=== PATIENT | female | born 1980 | race Caucasian/White ===

== ENCOUNTER 2016-11-26 18:10 | Emergency (ER) | payer OTHER ==
[2016-11-26 18:18] VITALS: BP 128/82; PULSE 98; TEMP 98.5; BMI 25.5
[2016-11-26 18:47] LABS: URINE APPEARANCE CLEAR; URINE BILIRUBIN NEGATIVE (NEGATIVE); URINE BLOOD NEGATIVE (NEGATIVE); URINE COLOR YELLOW; URINE GLUCOSE (UA) NEGATIVE (NEGATIVE); URINE KETONE TRACE (NEGATIVE); URINE LEUK ESTERASE NEGATIVE (NEGATIVE); URINE NITRITE NEGATIVE (NEGATIVE); URINE PROTEIN NEGATIVE (NEGATIVE); URINE UROBILINOGEN NEGATIVE E.U./dl (0.2-1.0)
--- NOTE | 2016-11-26 19:06 | PDOC ---
History of Present Illness - General Chief Complaint: Vaginal Sxs Stated Complaint: POSSIBLE PREG. EVALUATION Time Seen by Provider: 11/26/16 18:27 History Source: Patient Exam Limitations: No Limitations - History of Present Illness Initial Comments: 11/26/16 19:01 CC lower abd pain x 2 days with slight vaginal disch; no NVD; no fever; missed period; concerned with ectopic ; also wants STD testing post unprotected sex with cheating one partner Quality: reports: mild Abdominal Pain Onset Location: reports: periumbilical. denies: RLQ Pain Radiation: reports: no radiation Activities at Onset: denies: none Past History - Past Medical History Allergies/Adverse Reactions: Allergies Allergy/AdvReac Type Severity Reaction Status Date / Time No Known Allergies Allergy Verified 11/26/16 18:14 Home Medications: Ambulatory Orders Clindamycin [Cleocin -] 300 mg PO TID #21 capsule 11/07/15 Asthma: No Cancer: No Cardiac Disorders: No Diabetes: No HTN: No Seizures: No Thyroid Disease: No Other medical history: none - Surgical History Abdominal Surgery: Yes Appendectomy: Yes - Reproductive History (#): 6 Para: 4 Therapeutic (s) & number: No (0) Spontaneous : 1 - Psycho/Social/Smoking Cessation Hx Anxiety: No Suicidal Ideation: No Smoking Status: Yes Smoking History: Current every day smoker Have you smoked in the past 12 months: Yes Number of Cigarettes Smoked Daily: 5 If you are a former smoker, when did you quit?: 6 mos ago Information on smoking cessation initiated: Yes 'Breaking Loose' booklet given: 11/26/16 Hx Alcohol Use: No Drug/Substance Use Hx: No Substance Use Type: None Hx Substance Use Treatment: No Review of Systems - Review of Systems Constitutional: No: Chills, Fever, Malaise Respiratory: No: Symptoms reported, Cough Cardiac (ROS): No: Symptoms Reported ABD/GI: Yes: Abdominal cramping. No: Constipated, Diarrhea, Nausea, Vomiting : Yes: Discharge. No: Dysuria, Frequency, Hematuria, Incontinence Musculoskeletal: No: Symptoms Reported Integumentary: No: Symptoms Reported *Physical Exam - Vital Signs Last Vital Signs Temp Pulse Resp BP Pulse Ox 98.5 F 98 H 18 128/82 100 11/26/16 18:15 11/26/16 18:15 11/26/16 18:15 11/26/16 18:15 11/26/16 18:15 - Physical Exam General Appearance: Yes: Appropriately Dressed. No: Apparent Distress HEENT: positive: TMs Normal, Pharynx Normal Neck: positive: Supple. negative: Tender, Rigid, Lymphadenopathy (R), Lymphadenopathy (L) Respiratory/Chest: positive: Lungs Clear. negative: Chest Tender, Normal Breath Sounds Cardiovascular: positive: Regular Rhythm, Regular Rate. negative: Murmur Gastrointestinal/Abdominal: positive: Normal Bowel Sounds, Soft, Tenderness ( suprapubic tenderness; no RLQ tenderness). negative: Tender, Organomegaly, Pulsatile Mass Lymphatic: negative: Adenopathy Integumentary: positive: Normal Color, Dry, Warm Neurologic: positive: infrastructure project manager II-XII NML intact, Fully Oriented, Alert ED Treatment Course - ADDITIONAL ORDERS Additional order review: Laboratory Results 11/26/16 18:35 Urine HCG, Qual Negative Medical Decision Making - Medical Decision Making 11/26/16 19:41 Pt states that is is just now starting her menses; Urine and serum tests are negative; UA= wnl; STD testing pending; pt will wait for HIV test results tonight; Ms Lundberg will give results; *DC/Admit/Observation/Transfer Diagnosis at time of Disposition: Concern about STD in female without diagnosis, Menses, irregular - Discharge Dispostion Disposition: HOME Condition at time of disposition: Stable Admit: No - Patient Instructions Additional Instructions: Please follow up with [facility] MD for irregular menses; also we will call you with Results of STD testing done today
[2016-11-26 20:02] LABS: HIV 1 & 2 AB NEGATIVE; HIV 1 AGp24 NEGATIVE
== END 2016-11-26 20:23 | disposition home or self-care (01) ==
LOC: JERFT 18:10
DX: N92.5 Other specified irregular menstruation (principal); Z32.02 Encounter for pregnancy test, result negative
CPT/HCPCS: 36415; 81003; 84702; 84703; 86593; 87389; 87491; 87591; 99281-25

== ENCOUNTER 2017-05-07 09:17 | Emergency (ER) | payer OTHER ==
[2017-05-07 09:33] VITALS: BP 106/77; PULSE 75; TEMP 98.3; BMI 25.7
[2017-05-07] MEDS ORDERED: KETOROLAC TROMETHAMINE 60 MG/2 ML VIAL IM ONE (10:35)
[2017-05-07] MEDS ORDERED: KETOROLAC TROMETHAMINE 60 MG/2 ML VIAL ONE (10:41)
--- NOTE | 2017-05-07 11:40 | PDOC ---
History of Present Illness - General Chief Complaint: Pain Stated Complaint: RT SHOULDER/NECK PAIN Time Seen by Provider: 05/07/17 10:16 History Source: Patient Exam Limitations: No Limitations - History of Present Illness Initial Comments: 05/07/17 12:26 Patient is a 36 year old female, denies any medical history currently on no medication reports yesterday was changing her tired using a repetitive movement turning the tire iron, woke up today with right lateral neck pain and pain to right posterior shoulder. Patient denies any bruising, no erythema edema or deformity. Good range of motion to hand and fingers. When patient presses on posteriorshoulder she is able to relieve pain. Past Medical History: Denies. Allergies: No known allergies Medications: None Family History: Non-contributory Social History: Denies smoking, alcohol use, or IVDU Review of Systems GENERAL/CONSTITUTIONAL: No fever or chills. No weakness. No weight change. HEAD, EYES, EARS, NOSE AND THROAT: No change in vision. No ear pain or discharge. No sore throat. CARDIOVASCULAR: No chest pain or shortness of breath. RESPIRATORY: No cough, wheezing, or hemoptysis. GASTROINTESTINAL: No nausea, vomiting, diarrhea or constipation. No rectal bleeding. GENITOURINARY: No dysuria, frequency, or change in urination. MUSCULOSKELETAL: Pain to right lateral neck and pain to right posterior shoulder. SKIN AND BREASTS: No rash or easy bruising. NEUROLOGIC: No headache, vertigo, loss of consciousness, or loss of sensation. Physical Exam: GENERAL: The patient is awake, alert, and fully oriented, in no acute distress. HEAD: Normal with no signs of trauma. EYES: Pupils equal, round and reactive to light, extraocular movements intact, sclera anicteric, conjunctiva clear. ENT: Ears normal, nares patent, oropharynx clear without exudates. Moist mucous membranes. No uvula deviation NECK: Normal range of motion, supple without lymphadenopathy, JVD, or masses. Pain on palpation to right lateral neck. Pain able to be decreased with palpation to brachial plexus. LUNGS: Breath sounds equal, clear to auscultation bilaterally. No wheezes, and no crackles. HEART: Regular rate and rhythm, normal S1 and S2 without murmur, rub or gallop. ABDOMEN: Soft, nontender, normoactive bowel sounds. No guarding, no rebound. No masses. No bruising or abrasions MUSCULOSKELETAL: Normal range of motion, no edema. No clubbing or cyanosis. No cords, erythema, or tenderness. No CVA Tenderness with fist. NEUROLOGICAL: Cranial nerves II through XII grossly intact. Normal speech, normal gait. PSYCH: Normal mood, normal affect. SKIN: Warm, Dry, normal turgor, no rashes or lesions noted. Past History - Past Medical History Allergies/Adverse Reactions: Allergies Allergy/AdvReac Type Severity Reaction Status Date / Time No Known Allergies Allergy Verified 05/07/17 09:32 Home Medications: Ambulatory Orders Cyclobenzaprine HCl [Flexeril 10 mg] 10 mg PO BID PRN #20 tablet MDD 2 05/07/17 Ibuprofen [Motrin -] 600 mg PO QID #28 tablet 05/07/17 Asthma: No Cancer: No Cardiac Disorders: No Diabetes: No HTN: No Seizures: No Thyroid Disease: No - Surgical History Abdominal Surgery: Yes Appendectomy: Yes - Reproductive History (#): 6 Para: 4 Therapeutic (s) & number: No (0) Spontaneous : 1 - Suicide/Smoking/Psychosocial Hx Smoking Status: Yes Smoking History: Current every day smoker Have you smoked in the past 12 months: Yes Number of Cigarettes Smoked Daily: 5 If you are a former smoker, when did you quit?: 6 mos ago Information on smoking cessation initiated: No 'Breaking Loose' booklet given: 11/26/16 Hx Alcohol Use: No Drug/Substance Use Hx: No Substance Use Type: None Hx Substance Use Treatment: No *Physical Exam - Vital Signs Last Vital Signs Temp Pulse Resp BP Pulse Ox 98.3 F 75 20 106/77 99 05/07/17 09:29 05/07/17 09:29 05/07/17 09:29 05/07/17 09:29 05/07/17 09:29 ED Treatment Course - Medications Given in the ED: ED Medications Discontinued Medications Generic Name Dose Route Start Last Admin Trade Name Freq PRN Reason Stop Dose Admin Ketorolac Tromethamine 60 mg 05/07/17 10:35 05/07/17 10:44 Toradol Injection - IM 05/07/17 10:36 60 mg ONCE ONE Administration Medical Decision Making - Medical Decision Making 05/07/17 12:31 A/P: Patient here for evaluation of right lateral neck pain and right posterior shoulder pain pain to brachial plexus. Toradol 60 mg same times one given, after Toradol patient states that she is able now to turn her head and neck feels better. Discharge patient home on Flexeril and Motrin, follow-up with orthopedics. To refrain from repetitive movement or lifting anything heavy. I discussed the physical exam findings, ancillary test results and final diagnoses with the patient. I answered all of the patient's questions. The patient was satisfied with the care received and felt comfortable with the discharge plan and treatment plan. The patient will call to arrange follow-up and will return to the Emergency Department with any new, persistent or worsening symptoms. *DC/Admit/Observation/Transfer Diagnosis at time of Disposition: Nerve plexus injury - Discharge Dispostion Disposition: HOME Condition at time of disposition: Good Admit: No - Prescriptions Prescriptions: Cyclobenzaprine HCl [Flexeril 10 mg] 10 mg PO BID PRN #20 tablet MDD 2 PRN Reason: Pain Ibuprofen [Motrin -] 600 mg PO QID #28 tablet - Referrals Referrals: Luisa Leach MD [Primary Care Provider] - - Patient Instructions Additional Instructions: Please refrain from repetitive movement, refrain from lifting arm overhead. Recommend follow-up with orthopedics in one week if pain persists. May take Flexeril to reduce spasm, may cause drowsiness. - Post Discharge Activity Forms/Work/School Notes: Back to Work
== END 2017-05-07 11:44 | disposition home or self-care (01) ==
LOC: JERFT 09:17
PROC: 3E0233Z Introduction of Anti-inflammatory into Muscle, Percutaneous Approach (ICD-10-PCS; principal; 2017-05-07)
DX: S14.3XXA Injury of brachial plexus, initial encounter (principal); X50.3XXA Overexertion from repetitive movements, initial encounter; Y93.89 Activity, other specified; Y92.89 Other specified places as the place of occurrence of the external cause
CPT/HCPCS: 99281-25

== ENCOUNTER 2019-01-28 02:51 | Emergency (ER) | payer OTHER ==
[2019-01-28 04:36] VITALS: BP 110/72; PULSE 82; TEMP 62; BMI 26.5
--- NOTE | 2019-01-28 04:51 | PDOC ---
History of Present Illness - General Chief Complaint: Pain Stated Complaint: RIGHT FOOT PAIN Time Seen by Provider: 01/28/19 04:51 - History of Present Illness Initial Comments: 01/28/19 05:20 38-year-old female with pain to the right foot after falling and banging it on a bed. Patient is able to bear weight with pain. Past History - Past Medical History Allergies/Adverse Reactions: Allergies Allergy/AdvReac Type Severity Reaction Status Date / Time No Known Allergies Allergy Verified 01/28/19 04:24 Home Medications: Ambulatory Orders Cyclobenzaprine HCl [Flexeril 10 mg] 10 mg PO BID PRN #20 tablet MDD 2 05/07/17 Ibuprofen [Motrin -] 600 mg PO QID #28 tablet 05/07/17 Asthma: No Cancer: No Cardiac Disorders: No Diabetes: No HTN: No Seizures: No Thyroid Disease: No - Surgical History Abdominal Surgery: Yes Appendectomy: Yes - Reproductive History (#): 6 Para: 4 Therapeutic (s) & number: No (0) Spontaneous : 1 - Suicide/Smoking/Psychosocial Hx Smoking Status: Yes Smoking History: Never smoked Have you smoked in the past 12 months: No Number of Cigarettes Smoked Daily: 5 If you are a former smoker, when did you quit?: 6 mos ago Information on smoking cessation initiated: No 'Breaking Loose' booklet given: 11/26/16 Hx Alcohol Use: No Drug/Substance Use Hx: No Substance Use Type: None Hx Substance Use Treatment: No Review of Systems - Review of Systems Able to Perform ROS?: Yes Is the patient limited Nauruan proficient: Yes Constitutional: No: Symptoms Reported, See HPI, Chills, Diaphoresis, Fever, Loss of Appetite, Malaise, Night Sweats, Weakness, Weight Stable, Unintentional Wgt. Loss, Unexplained wgt Loss, Other HEENTM: No: Symptoms Reported, See HPI, Eye Pain, Blurred Vision, Tearing, Recent change in vision, Double Vision, Cataracts, Ear Pain, Ocular Prothesis, Ear Discharge, Nose Pain, Nose Congestion, Tinnitus, Nose Bleeding, Hearing Loss , Throat Pain, Throat Swelling, Mouth Pain, Dental Problems, Difficulty Swallowing, Mouth Swelling, Other Respiratory: No: Symptoms reported, See HPI, Cough, Orthopnea, Shortness of Breath, SOB with Exertion, SOB at Rest, Stridor, Wheezing, Productive cough, Hemoptysis, Other Cardiac (ROS): No: Symptoms Reported, See HPI, Chest Pain, Edema, Irregular Heart Rate, Lightheadedness, Palpitations, Syncope, Chest Tightness, Other ABD/GI: No: Symptoms Reported, See HPI, Abdominal Distended, Abd. Pain w/ defecation, Blood Streaked Bowels, Constipated, Diarrhea, Difficulty Swallowing , Nausea, Poor Appetite, Poor Fluid Intake, Rectal Bleeding, Vomiting, Indigestion, Abdominal cramping, Tarry Stools, Other : No: Symptoms Reported, See HPI, Burning, Dysuria, Discharge, Frequency, Flank Pain, Hematuria, Incontinence, Pain, Urgency, Testicular Mass, Testicular Swelling, Lesions, Testicular Pain, Other Integumentary: No: Symptoms Reported, See HPI, Bruising, Change in Color, Change in Hair/Nails, Dryness, Erythema, Flushing, Lesions, Lumps, Pallor, Pruritus, Rash, Sweating, Other Neurological: No: Symptoms reported, See HPI, Headache, Numbness, Paresthesia, Pre-Existing Deficit, Seizure, Tingling, Tremors, Weakness, Unsteady Gait, Ataxia, Dizziness, Other *Physical Exam - Vital Signs Last Vital Signs Temp Pulse Resp BP Pulse Ox 62 F L 82 18 110/72 99 01/28/19 02:55 01/28/19 02:55 01/28/19 02:55 01/28/19 02:55 01/28/19 02:55 - Physical Exam Comments: 01/28/19 05:24 GENERAL: Awake, in no acute distress HEAD: No signs of trauma EYES: ENT:clear without exudates. Moist mucosa NECK: Normal ROM, LUNGS:. Normal work of breathing. HEART: Regular rate and rhythm, ABDOMEN: Soft, nondistended CHEST WALL: BACK: No midline tenderness. EXTREMITIES:. No erythema, point tenderness right foot dorsum with swelling and ecchymosis n/v in tact with palpable pulses NEUROLOGICAL: Alert, SKIN: Warm, Dry Medical Decision Making - Medical Decision Making 01/28/19 05:25 X-ray shows an avulsion fracture of the proximal phalanx, second on the right foot *DC/Admit/Observation/Transfer Diagnosis at time of Disposition: Toe fracture, right - Discharge Dispostion Disposition: HOME Condition at time of disposition: Stable Decision to Admit order: No - Referrals Referrals: Din,Luisa, MD [Primary Care Provider] - Zach Simeon MD [Staff Physician] - - Patient Instructions Printed Discharge Instructions: DI for Foot Fracture Additional Instructions: Follow-up with orthopedics. If your foot becomes more swollen, blue or numb return to the nearest emergency department. Otherwise keep elevated as much as possible. - Post Discharge Activity - Attestations Physician Attestion: 01/28/19 05:16 I, Dr Bertha Mcneal, attest that this document has been prepared under my direction and personally reviewed by me in its entirety. I further attest, that it accurately reflects all work, procedures and medical decision making performed by me.
== END 2019-01-28 05:32 | disposition home or self-care (01) ==
LOC: JER 02:51
DX: S92.514A Nondisplaced fracture of proximal phalanx of right lesser toe(s), initial encounter for closed fracture (principal); W01.190A Fall on same level from slipping, tripping and stumbling with subsequent striking against furniture, initial encounter; Y93.89 Activity, other specified; Y92.032 Bedroom in apartment as the place of occurrence of the external cause; Y99.8 Other external cause status
CPT/HCPCS: 73630-TC-RT-FY; 99281-25

== ENCOUNTER 2022-03-16 22:45 | Emergency (ER) | payer OTHER ==
[2022-03-16 23:15] VITALS: BP 107/73; PULSE 86; RESP 18; TEMP 97.9; BMI 29.8
[2022-03-17] MEDS ORDERED: DIPHTH,PERTUSS(ACELL),TET 0.5 ML DISP.SYRIN IM ONE ×2 (00:35→00:42)
== END 2022-03-17 00:47 | disposition home or self-care (01) ==
LOC: JER 22:45
PROC: 3E0234Z Introduction of Serum, Toxoid and Vaccine into Muscle, Percutaneous Approach (ICD-10-PCS; principal; 2022-03-17)
DX: S61.412A Laceration without foreign body of left hand, initial encounter (principal)
CPT/HCPCS: 90471; 90715; 99284-25

== ENCOUNTER 2023-12-22 21:34 | Emergency (ER) | payer OTHER ==
[2023-12-22 21:38] VITALS: BP 131/84; PULSE 84; RESP 17; TEMP 98.5; BMI 28.3
[2023-12-22] MEDS ORDERED: KETOROLAC TROMETHAMINE 15 MG/ML VIAL ONE (22:17)
[2023-12-22] MEDS: KETOROLAC TROMETHAMINE 15 MG/ML VIAL IM ONE (22:23)
== END 2023-12-22 22:50 | disposition home or self-care (01) ==
LOC: JERFT 21:34
PROC: 3E0133Z Introduction of Anti-inflammatory into Subcutaneous Tissue, Percutaneous Approach (ICD-10-PCS; principal; 2023-12-22)
DX: S49.91XA Unspecified injury of right shoulder and upper arm, initial encounter (principal); X50.1XXA Overexertion from prolonged static or awkward postures, initial encounter
CPT/HCPCS: 73030-TC-RT-FY; 99284-25